=== PATIENT | male | born 1995 | race African-American/Black ===

== ENCOUNTER 2018-05-27 16:48 | Emergency (ER) | payer OTHER ==
[~2018-05-27] VITALS: Ht 170.2 cm; Wt 59.0 kg
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
[2018-05-27 18:53] VITALS: BP 115/62
== END 2018-05-27 18:53 | disposition home or self-care (01) ==
LOC: ER 16:48
DX: S40.011A Contusion of right shoulder, initial encounter (principal); S20.211A Contusion of right front wall of thorax, initial encounter; V49.88XA Car occupant (driver) (passenger) injured in other specified transport accidents, initial encounter; Y93.89 Activity, other specified; Y92.488 Other paved roadways as the place of occurrence of the external cause; Y99.8 Other external cause status
CPT/HCPCS: 99281